=== PATIENT | female | born 1985 ===

== ENCOUNTER 2021-01-05 13:05 | Emergency (ER) | payer SELFPAY ==
[~2021-01-05] VITALS: Ht 167.6 cm; Wt 68.2 kg
[2021-01-05 13:16] VITALS: BP 159/98; Ht 167.6 cm; Wt 68.2 kg
[2021-01-05] MEDS ORDERED: CLIMARA 0.0.05 MG/PA TRANSDERM (13:17)
[2021-01-05] MEDS ORDERED: ZOLOFT50 MG PO (13:17)
[2021-01-05] MEDS ORDERED: IBUPROFEN800 MG PO (13:34)
[2021-01-05] MEDS ORDERED: CYCLOBENZAPRINE10 MG PO (13:34)
== END 2021-01-05 14:28 | disposition home or self-care (01) ==
LOC: D.ER 13:05
DX: M79.601 Pain in right arm (principal); M54.9 Dorsalgia, unspecified; M79.10 Myalgia, unspecified site; S46.911A Strain of unspecified muscle, fascia and tendon at shoulder and upper arm level, right arm, initial encounter; S46.001A Unspecified injury of muscle(s) and tendon(s) of the rotator cuff of right shoulder, initial encounter; X50.9XXA Other and unspecified overexertion or strenuous movements or postures, initial encounter; Y93.9 Activity, unspecified; Y92.9 Unspecified place or not applicable